=== PATIENT | male | born 1980 | race Caucasian/White ===

== ENCOUNTER 2017-05-29 12:12 | Inpatient (IN) | payer MEDICAID ==
[~2017-05-29] VITALS: Ht 185.4 cm; Wt 73.1 kg
[2017-05-29 12:57] LABS: BASO % 0.1 % (0.0-2.0); EOS # 0.1 (0.0-0.7); EOS % 1.1 % (0-4.0); GRAN # 6.1 (1.4-6.5); GRAN % 74.1 % (42.2-75.2); HEMATOCRIT 45.4 % (42.0-52.0); LYMPH # 1.2 (1.2-3.4); LYMPH % 14.9 % (20.0-51.0); MEAN CELL VOLUME 89 fl (80.0-100.0); MEAN CORPUSCULAR HEMOGLOBIN 31 pg (27.0-31.0); MEAN CORPUSCULAR HGB CONC 35 g/dl (33.0-37.0); MEAN PLATELET VOLUME 9.6 fl (7.4-10.4); MONO # 0.8 (0.1-0.6); MONO % 9.4 % (1.7-9.3); PLATELET COUNT 253 K/mm3 (130-400); RED BLOOD COUNT 5.12 M/mm3 (4.20-5.60); REDCELL DISTRIBUTION WIDTH-CV 12.1 % (11.5-14.5)
[2017-05-29 13:10] LABS: ALBUMIN 4.4 gm/dL (3.5-5.0); C-REACTIVE PROTEIN 2.9 mg/dL (0.0-0.9); CALCIUM 9.8 mg/dL (8.4-10.2); CREATININE, serum 0.95 mg/dL (0.66-1.25); POTASSIUM 3.8 mmol/L (3.4-5.0); TOTAL PROTEIN 8.4 gm/dL (6.4-8.2)
[2017-05-29] MEDS ORDERED: MOTRIN 200200 MG/TAB PO (15:27)
[2017-05-29 15:43] VITALS: BP 113/69; PULSE 72; TEMP 97.4
[2017-05-29 17:48] VITALS: BP 116/66; PULSE 83; TEMP 97.5
[2017-05-29 21:06] VITALS: BP 123/69; PULSE 96; TEMP 98.9
[2017-05-30 02:14] VITALS: BP 111/61; PULSE 111; TEMP 98.9
[2017-05-30 05:24] VITALS: BP 112/57; PULSE 101; TEMP 99
[2017-05-30 07:03] LABS: BASO % 0.1 % (0.0-2.0); EOS # 0.1 (0.0-0.7); EOS % 1.6 % (0-4.0); GRAN % 72.5 % (42.2-75.2); HEMATOCRIT 40.3 % (42.0-52.0); HEMOGLOBIN 14.1 g/dl (13.5-18.0); LYMPH # 1.3 (1.2-3.4); LYMPH % 16.3 % (20.0-51.0); MEAN CELL VOLUME 90 fl (80.0-100.0); MEAN CORPUSCULAR HEMOGLOBIN 31 pg (27.0-31.0); MEAN CORPUSCULAR HGB CONC 35 g/dl (33.0-37.0); MEAN PLATELET VOLUME 10.2 fl (7.4-10.4); MONO # 0.7 (0.1-0.6); PLATELET COUNT 227 K/mm3 (130-400); REDCELL DISTRIBUTION WIDTH-CV 12.2 % (11.5-14.5)
[2017-05-30 07:14] LABS: ALBUMIN 3.5 gm/dL (3.5-5.0); BILIRUBIN,TOTAL 3.2 mg/dL (0.0-1.0); CALCIUM 8.8 mg/dL (8.4-10.2); CREATININE, serum 0.77 mg/dL (0.66-1.25); POTASSIUM 3.9 mmol/L (3.4-5.0); TOTAL PROTEIN 6.6 gm/dL (6.4-8.2)
[2017-05-30 09:41] VITALS: BP 123/71; PULSE 95; TEMP 99
[2017-05-30 13:35] VITALS: BP 123/74; PULSE 84; TEMP 98
[2017-05-30 17:55] VITALS: BP 117/67; PULSE 78; TEMP 98.2
[2017-05-30 21:59] VITALS: BP 121/69; PULSE 97; TEMP 98.4
[2017-05-31] VITALS (12 sets, daily range): BP systolic 105–149; BP diastolic 59–93; PULSE 68–88; TEMP 97.4–98.2
[2017-06-01] VITALS (11 sets, daily range): BP systolic 106–130; BP diastolic 53–80; PULSE 68–87; TEMP 97.8–98.2
[2017-06-01 07:21] LABS: ALBUMIN 3.3 gm/dL (3.5-5.0); BILIRUBIN,TOTAL 1.7 mg/dL (0.0-1.0); CALCIUM 8.8 mg/dL (8.4-10.2); CREATININE, serum 0.7 mg/dL (0.66-1.25); POTASSIUM 3.8 mmol/L (3.4-5.0); TOTAL PROTEIN 6.3 gm/dL (6.4-8.2)
[2017-06-02 00:34] VITALS: BP 115/50; PULSE 83; TEMP 97.5
[2017-06-02 04:42] VITALS: BP 105/57; PULSE 74; TEMP 98
[2017-06-02 09:53] VITALS: BP 107/55; PULSE 85; TEMP 98
[2017-06-02 13:05] VITALS: BP 101/65; PULSE 78; TEMP 98.7
== END 2017-06-02 18:57 | disposition home or self-care (01) | DRG 417 ==
LOC: COL.ER 12:12 → JCC 13:52
PROVIDERS: Emergency Medicine; Surgery
PROC: 0FC98ZZ Extirpation of Matter from Common Bile Duct, Via Natural or Artificial Opening Endoscopic (ICD-10-PCS; 2017-05-31)
PROC: 0FT44ZZ Resection of Gallbladder, Percutaneous Endoscopic Approach (ICD-10-PCS; principal; 2017-06-01 16:00)
DX: K80.62 Calculus of gallbladder and bile duct with acute cholecystitis without obstruction (principal); K85.10 Biliary acute pancreatitis without necrosis or infection; Z87.891 Personal history of nicotine dependence
CPT/HCPCS: C1769; J1100; J1170; J1885; J1956; J2270; J2405; J2704; J3010; J7030; Q9967